=== PATIENT | female | born 1970 | race Caucasian/White ===

== ENCOUNTER 2018-04-20 10:02 | Emergency (ER) | payer BC, OTHER ==
[~2018-04-20] VITALS: Ht 162.6 cm; Wt 57.6 kg
[2018-04-20] MEDS ORDERED: HYDROCODONE-AP1 EAC6 PO (10:52)
[2018-04-20] MEDS ORDERED: NAPROSYN500 MG PO (10:52)
[2018-04-20] MEDS ORDERED: ONDANSETRON HCL4 M2 PO (11:04)
[2018-04-20 13:02] VITALS: BP 121/74
== END 2018-04-20 11:35 | disposition home or self-care (01) ==
LOC: ER 10:02
DX: S82.65XA Nondisplaced fracture of lateral malleolus of left fibula, initial encounter for closed fracture (principal); F17.210 Nicotine dependence, cigarettes, uncomplicated; W00.0XXA Fall on same level due to ice and snow, initial encounter; Y92.89 Other specified places as the place of occurrence of the external cause; Y93.89 Activity, other specified; Y99.8 Other external cause status

== ENCOUNTER 2019-03-17 23:18 | Emergency (ER) | payer OTHER ==
[~2019-03-17] VITALS: Ht 167.6 cm; Wt 68.0 kg
[~2019-03-17 23:18] MED LIST: HYDROCODONE-AP1 EAC6 PO; NAPROSYN500 MG PO; ONDANSETRON HCL4 M2 PO
[2019-03-17] MEDS ORDERED: LISINOPRIL2.5 MG PO (23:24)
[2019-03-17] MEDS ORDERED: CELEXA 20 MG TA20 MG PO (23:24)
[2019-03-18] MEDS ORDERED: TRAMADOL 50 MG50 MG PO (00:32)
[2019-03-18] MEDS ORDERED: PREDNISONE 20 M20 MG PO (00:32)
[2019-03-18 07:06] VITALS: BP 130/76
--- NOTE | 2019-03-18 17:22 | EKG ---
[address] [id number] [place] [address] ELECTROCARDIOGRAM REPORT Name: ELSIE HAM Room #: DEP [facility]#: [id number] Admission: 03/17/19 Attend Phys: Discharge: 03/18/19 Date of : 70 Report #: [id number] THIS REPORT FOR: //name// ED Test Date: 2019-03-17 Test Time: 23:23:02 Pat Name: ELSIE HAM Department: Room: Gender: F Business Planning Analyst: ASHLEIGH : 1970 Requested By: Juventino Austin Order Number: [id number] MD: Juancarlos Rojas Measurements Intervals [place] Rate: 85 P: 81 HI: 162 QRS: 77 QRSD: 90 T: 65 QT: 378 QTc: 450 Interpretive Statements Sinus rhythm LAE, consider biatrial enlargement RSR' in V1 or V2, probably normal variant No previous ECG available for comparison Electronically Signed On 03-18-2019 17:21:25 [employer] by Juancarlos Rojas [email or web address] <ELECTRONICALLY SIGNED> By: Juancarlos Rojas MD 03/18/19 1721 22 22 Juancarlos Rojas MD /[email or web address]
== END 2019-03-18 01:30 | disposition home or self-care (01) ==
LOC: ER 23:18
DX: M94.0 Chondrocostal junction syndrome [Tietze] (principal); J06.9 Acute upper respiratory infection, unspecified; I10 Essential (primary) hypertension; F17.210 Nicotine dependence, cigarettes, uncomplicated; F32.9 Major depressive disorder, single episode, unspecified